=== PATIENT | female | born 1945 | race Hispanic/Latino ===

== ENCOUNTER → 2017-06-25 | Day surgery (SDC) | payer MEDICARE ==
[2017-06-23 11:38] LABS: BASOPHILS % 0.6 % (0.0-1.0); EOSINOPHILS # (AUTO) 0.2 (0.0-0.4); EOSINOPHILS % 2.4 % (0.0-6.0); HEMATOCRIT 37.9 % (34.2-44.1); HEMOGLOBIN 13.1 g/dL (12.0-16.0); LYMPHOCYTES # (AUTO) 2.4 (1.0-3.2); LYMPHOCYTES % 34.1 % (18.0-39.1); MEAN CORPUSCULAR HGB CONC 34.6 g/dL (31-35); MEAN CORPUSCULAR VOLUME 89.6 fL (81-99); MONOCYTES # (AUTO) 0.4 (0.2-0.8); MONOCYTES % 6.1 % (4.4-11.3); NEUTROPHILS % 56.7 % (38.7-80.0); PLATELET COUNT 215 x10e3/uL (140-360); RED BLOOD COUNT 4.23 x10e6/uL (3.6-5.1); RED CELL DISTRIBUTION WIDTH 12.2 % (11.7-14.4)
--- NOTE | 2017-06-23 12:18 | Diagnostic Imaging Report ---
PROCEDURE: Frontal and lateral views of the chest. COMPARISON: None. INDICATIONS: PREO OP SHOULDER SX FINDINGS: Lines/tubes: None. Lungs: The lungs are well inflated and clear. There is no evidence of pneumonia or pulmonary edema. Pleura: There is no pleural effusion or pneumothorax. Heart and mediastinum: Normal sized heart. The aorta is tortuous. Bones: No acute bony abnormality. IMPRESSION: 1. No acute cardiopulmonary disease. Dictated by: Carson Palacios M.D. on 06/23/2017 at 12:17 Electronically approved by: Carson Palacios M.D. on 06/23/2017 at 12:17
[2017-06-23 12:47] LABS: ANION GAP 13.1 mmol/L (8-16); BLOOD UREA NITROGEN 19 mg/dL (7-26); BUN/CREATININE RATIO 26 (6-25); CALCIUM 9.2 mg/dL (8.4-10.2); CARBON DIOXIDE 30 mmol/L (22-29); CHLORIDE 103 mmol/L (98-107); CREATININE, SERUM 0.72 mg/dL (0.57-1.11); EST GLOMERULAR FILTRATION RATE > 60 ML/MIN (60-); GLUCOSE 97 mg/dL (74-118); POTASSIUM 4.1 mmol/L (3.5-5.1); SODIUM 142 mmol/L (136-145)
[~2017-06-25] MED LIST: ACETAMINOPHEN 1000 MG/100 ML IV ONE; AMLODIPINE BESYL5 MG PO; CEFAZOLIN SOD 2 GM/D5W 50ML 50 ML IV ONE; CETIRIZINE HCL10 MG PO; DEXAMETHASONE SOD PHOS INJ 4 MG/ML VIAL ONE; EPHEDRINE SULFATE INJ 50 MG/10 ML SYR ONE; FENTANYL CITRATE/PF 100MCG/2 ML INJ ONE; GLYCOPYRROLATE INJ 1MG/ 5 ML SYR ONE; HYDROCHLOROTHIA25 MG PO; LIDOCAINE 2% /EPINEPHRINE 20 ML SDV INJ ONE; LIDOCAINE HCL 2% LOCAL INJ 5 ML SDV VIAL INJ ONE; MIDAZOLAM HCL 2 MG/2 ML VIAL ONE; NEOSTIGMINE 5 MG/5ML SYR ONE; ONDANSETRON HCL INJ 2 MG/ML VIAL ONE; PROPOFOL IV EMULSION 10 MG/ML 20 ML VIAL ONE; ROCURONIUM BROMIDE 10 MG/ML 5ML VIAL ONE; ROPIVACAINE 0.5% 5 MG/ML 30 ML SDV ONE; SEVOFLURANE INHAL SOLN 250 ML PEN BTL ONE
--- OUTSIDE RECORDS SUMMARY | 2017-06-25 07:00 | XMS REPORT | Clinical Summary ---
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 Disp. Refills Start End Date Status Date anktdwi-wvlvhfphihqai-nmu Take 1 tablet by mouth Active feine (EXCEDRIN MIGRAINE) every 6 (six) hours as 250-250-65 mg per tablet needed. ranitidine (ZANTAC) 150 Take 300 mg by mouth 2 Active MG capsule (two) times daily. ascorbic acid (ASCORBIC Take 500 mg by mouth Active ACID WITH SLAVA HIPS) 500 daily. MG tablet calcium carbonate-vitamin Take 1 tablet by mouth 2 Active D2 500 mg(1,250mg) -200 (two) times daily. unit tablet cyanocobalamin (VITAMIN Take 100 mcg by mouth Active B-12) 1000 MCG tablet daily. metroNIDAZOLE (FLAGYL) Take 500 mg by mouth 3 Active 500 MG tablet (three) times daily. Active Problems Problem Noted Date Abdominal pain 03/18/2013 Immunizations Name Dates Previously Given Next Due Pneumococcal 03/19/2013 Polysaccharide (Pneumovax) Family History Medical History Relation Name Comments Unremarkable Father Cancer Maternal Aunt Unremarkable Mother Relation Name Status Comments Father Maternal Aunt Mother Social History Tobacco Use Types Packs/Day Years Used Date Never Smoker Alcohol Use Drinks/Week oz/Week Comments No Sex Assigned at Date Recorded Not on file Last Filed Vital Signs Not on file Plan of Treatment Not on file Results Not on fileafter 06/24/2016
--- OUTSIDE RECORDS SUMMARY | 2017-06-25 07:00 | XMS REPORT ---
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 Allergies, Adverse Reactions, Alerts This patient has no known allergies or adverse reactions. Medications This patient has no known medications. Results Test Description Test Time Test Comments Text Results Atomic Results Result Comments CHEST 2 VIEWS [place] [address] Patient Name: NENA FISCHER MR #: [id number] : 1945 Age/Sex: 71/F Req #: [id number] Adm Physician: Ordered by: KAMRYN ELMORE MD Report #: [id number] Location: OR Room/Bed: Procedure: [id number] DX/CHEST 2 VIEWS Exam Date: Exam Time: REPORT STATUS: Signed PROCEDURE: Frontal and lateral views of the chest. COMPARISON: None. INDICATIONS: PREO OP SHOULDER SX FINDINGS: Lines/tubes: None. Lungs: The lungs are well inflated and clear. There is no evidence of pneumonia or pulmonary edema. Pleura: There is no pleural effusion or pneumothorax. Heart and mediastinum: Normal sized heart. The aorta is tortuous. Bones: No acute bony abnormality. IMPRESSION: 1. No acute cardiopulmonary disease. Dictated by: Froy Palacios M.D. on 06/23/2017 at 12:17 Electronically approved by: Froy Palacios M.D. on 06/23/2017 at 12:17 Dictated By: FROY PALACIOS MD 121 Transcribed By: JADON on 06/23/171216 COPY TO: KAMRYN ELMORE MD
--- NOTE | 2017-06-25 20:29 | Operative Report ---
DATE OF PROCEDURE: June 25, 2017 PREOPERATIVE DIAGNOSIS: Right shoulder rotator cuff tear. POSTOPERATIVE DIAGNOSES 1. Right shoulder massive chronic rotator cuff tear. 2. Long head of the biceps tendon tear. 3. Right shoulder synovitis. 4. Right shoulder acromioclavicular joint arthrosis. OPERATION/PROCEDURE PERFORMED 1. Right shoulder examination under anesthesia. 2. Right shoulder arthroscopy. 3. Right shoulder debridement of synovitis. 4. Right shoulder arthroscopic repair of a massive chronic rotator cuff tear. 5. Arthroscopic subacromial decompression and acromioplasty. 6. Right shoulder arthroscopic distal clavicle resection. COPY DIRECTOR: Urmila Reardon PA-C ANESTHESIA: General endotracheal intubation anesthesia as well as a regional block. IV FLUIDS: Per the anesthesia record. COMPLICATIONS: None. BRIEF DESCRIPTION OF THE PATIENT'S OPERATIVE PROCEDURE: Ms. Anthony was taken to the operating room and placed in the supine position on the operating table. Following induction of general anesthesia as well as endotracheal intubation, the patient's right upper extremity was examined under anesthesia. She was found to have a normal appearing shoulder. Passive range of motion of the shoulder joint was full. There was no evidence of instability. The standard posterolateral and anterior portal was created without difficulty. The scope was placed within the shoulder joint atraumatically and examination of the glenohumeral articulation demonstrated no significant evidence of chondromalacia. The long head of the biceps was not contained within the shoulder joint. There were no loose bodies in the shoulder joint. There was diffuse synovitis. The patient had a massive chronic appearing rotator cuff tear with retraction of soft tissues beyond the level of the glenoid. The entire supraspinatus and infraspinatus tendons were torn and retracted. The entire supraspinatus and infraspinatus tendons were torn and retracted. The teres minor was found to be intact, but to be thin. A shaver was placed in the shoulder joint and the patient's synovitis was debrided thoroughly. The scope was then placed in subacromial space and bursal inflammation was encountered. A lateral portal was created through outside-in technique. A bursectomy was performed revealing the patient's massive rotator cuff tear. An elevator was then placed in the shoulder joint, and the. rotator cuff tendon was mobilized. Supraspinatus portion of the rotator cuff tendon was found to be markedly thinned. The rotator interval was also injured and retracted. The rotator cuff tissues were mobilized and a marginal repair appeared to be possible. The insertion site for the rotator cuff was thoroughly debrided to a bleeding bony bed. Two triple-loaded suture anchors were then inserted into the greater tuberosity of the humerus and suture arms from those anchors were then woven through the rotator cuff tissue. The rotator cuff tissue was then advanced from posterior to anterior and a combination of an end-to-end and iyvj-dy-ajez fashion. The rotator cuff tissue was drawn to the greater tuberosity of the humerus. This resulted in complete repair of the infraspinatus portion of the rotator cuff injury. The supraspinatus injury was repaired in a marginal fashion. The supraspinatus tissue was found to be of poor quality and significantly worn du to the chronic nature of the injury. Once this was achieved, the shoulder was placed through a range of motion and found to have significant impingement on the overlying acromion. An aggressive acromioplasty was then performed. A shaver was then placed at the anterior portal and a 1 cm section of the distal clavicle was resected arthroscopically. Completion of the distal clavicle resection was verified transferring the scope to the anterior portal and looking directly at the acromioclavicular junction. This shoulder was then deflate with sterile normal saline. All portal sites were closed, and sterile dressings were applied. The patient was provided a shoulder immobilizer, awakened and taken to post anesthesia care unit in stable condition. Urmila Reardon acted as a hr assistant for this case, and was necessary for both prepping and draping of the patient as well as the positioning of the arm and the passage of suture that allowed this case to be successful. Job#: [id number] KISHA
== END | disposition home or self-care (01) ==
LOC: OR 06:58
PROVIDERS: ATTEND Specialist
DX: M75.121 Complete rotator cuff tear or rupture of right shoulder, not specified as traumatic (principal); M19.011 Primary osteoarthritis, right shoulder; S46.111A Strain of muscle, fascia and tendon of long head of biceps, right arm, initial encounter; M65.811 Other synovitis and tenosynovitis, right shoulder; I49.3 Ventricular premature depolarization; I10 Essential (primary) hypertension; K21.9 Gastro-esophageal reflux disease without esophagitis; X58.XXXA Exposure to other specified factors, initial encounter; Z01.810 Encounter for preprocedural cardiovascular examination; Z01.812 Encounter for preprocedural laboratory examination; Z01.818 Encounter for other preprocedural examination
CPT/HCPCS: 29824; 29826; 29827; 36415; 71046; 80048; 85025; 93005; J1100; J2001 ×2; J2250; J2405; J2795